=== PATIENT | male | born 1995 | race Caucasian/White ===

== ENCOUNTER 2017-02-03 15:57 | Emergency (ER) | payer OTHER ==
[~2017-02-03] VITALS: Ht 175.3 cm; Wt 96.6 kg
[2017-02-03 17:12] VITALS: BP 109/69
== END 2017-02-03 17:12 | disposition home or self-care (01) ==
LOC: ED 15:57
DX: S01.512A Laceration without foreign body of oral cavity, initial encounter (principal); E23.2 Diabetes insipidus; W54.0XXA Bitten by dog, initial encounter; Y93.89 Activity, other specified; Y99.8 Other external cause status; Y92.89 Other specified places as the place of occurrence of the external cause
CPT/HCPCS: 90715; J2001